=== PATIENT | female | born 1955 | race Caucasian/White ===

== ENCOUNTER 2020-03-23 00:31 | Outpatient (CLI) | payer MEDICARE, SELFPAY ==
[2020-03-23 16:41] LABS: SARS-CoV-2 RNA PCR Negative
== END 2020-03-23 00:32 | disposition home or self-care (01) ==
LOC: ANHCOVIDDT 00:31
PROVIDERS: PCP Family Medicine; Visit Provider Internal Medicine Gastroenterology
DX: Z01.818 Encounter for other preprocedural examination (principal); Z11.59 Encounter for screening for other viral diseases
CPT/HCPCS: 87635; C9803; U0003

== ENCOUNTER 2020-03-25 02:04 | Day surgery (SDC) | payer MEDICARE, SELFPAY ==
[2020-03-19 16:08] VITALS: BMI 33.7
[2020-03-25] MEDS: LACTATED RINGERS 1,000 ML 150 ML IV CONT (09:48)
[2020-03-25 09:51] VITALS: BP 168/65; PULSE 77; RESP 18; TEMP 36.2; O2SAT 97; BMI 34.2
--- NOTE | 2020-03-25 09:56 | P.HP_ITS ---
History of Present Illness History of Present Illness Consent: Risks, benefits, and alternatives have been discussed and questions answered. Patient agrees to proceed with procedure. Chief complaint: hx of polyps Narrative: Cynthia Mehta is a 65 year old female with a history of polyps. [facility] Family History Family History Father Family history of chronic obstructive pulmonary disease Hypertension Family history of heart disease in male family member before age 55 Mother Family history of coronary artery disease Social History Social History Smoking status: Never smoker Smoking end date: 10/23/10 Alcohol intake: never Meds Home Medications and Allergies Home Medications Medication Instructions Recorded Confirmed Type citalopram 40 mg tablet 40 mg PO DAILY #90 tablet 09/03/19 03/19/20 Rx clopidogrel 75 mg tablet 75 mg PO DAILY #90 tablet 09/11/19 03/25/20 Rx tiotropium bromide 18 mcg capsule 1 cap INHALATION DAILY #90 10/02/19 03/25/20 Rx with inhalation device inhalation isosorbide mononitrate 30 mg 30 mg PO DAILY #90 tablet 02/28/20 03/19/20 Rx tablet,extended release 24 hr nifedipine 60 mg tablet,extended 60 mg PO DAILY #90 tablet 03/11/20 03/25/20 Rx release 24 hr metoprolol succinate 25 mg 25 mg PO DAILY #30 tablet 03/12/20 03/19/20 Rx tablet,extended release 24 hr atorvastatin 20 mg PO DAILY 03/19/20 03/19/20 History cholecalciferol (vitamin D3) 25 mcg PO DAILY 03/19/20 03/19/20 History [Vitamin D3] fluticasone propion-salmeterol 1 ea INHALATION BID 03/19/20 03/19/20 History [Wixela Inhub] gabapentin 300 mg PO TID 03/19/20 03/25/20 History Allergies Allergy/AdvReac Type Severity Reaction Status Date / Time morphine Allergy Intermediate Nausea Verified 03/25/20 09:39 Sulfa (Sulfonamide Allergy Intermediate Nausea Verified 03/25/20 09:39 Antibiotics) Vital Signs Vital Signs - 24 hr 03/25/20 09:51 Temperature 36.2 C L Pulse Rate 77 Respiratory Rate 18 Blood Pressure 168/65 H Pulse Oximetry 97 Exam Resp: Auscultation: clear to auscultation bilaterally Cardio: Rate: regular rate Rhythm: regular rhythm GI: GI Palp: Yes Soft to palpation and No Tenderness to palpation present (GI) Assessment and Plan Assessment and plan (1) Personal history of colonic polyps: Code(s): Z86.010 - Personal history of colonic polyps Status: Acute Assessment and Plan: Colonoscopy with possible biopsy or polypectomy or cautery or injection of substances.
--- NOTE | 2020-03-25 10:09 | WPDANESEPPF ---
Anes - Initial Pre Proc Eval Procedure: Operation Date: 03/25/20 10:00 Proposed Procedures p Screening Colonoscopy - Kenton Wilder MD Date/Time: 03/25/20 10:09 Surgeon: Kenton Wilder MD Pre Op Diagnosis: hx of polyps Patient Data Age: 65 Gender: F Height: 5 ft 5 in Weight: 93.5 kg Last Vital Signs Temp 97.1 F L 03/25/20 09:51 Pulse 77 03/25/20 09:51 Resp 18 03/25/20 09:51 BP 168/65 H 03/25/20 09:51 Pulse Ox 97 03/25/20 09:51 Allergies Allergy/AdvReac Type Severity Reaction Status Date / Time morphine Allergy Intermediate Nausea Verified 03/25/20 09:39 Sulfa (Sulfonamide Allergy Intermediate Nausea Verified 03/25/20 09:39 Antibiotics) Home Medications Medication Instructions Recorded Confirmed Type citalopram 40 mg tablet 40 mg PO DAILY #90 tablet 09/03/19 03/19/20 Rx clopidogrel 75 mg tablet 75 mg PO DAILY #90 tablet 09/11/19 03/25/20 Rx tiotropium bromide 18 mcg capsule 1 cap INHALATION DAILY #90 10/02/19 03/25/20 Rx with inhalation device inhalation isosorbide mononitrate 30 mg 30 mg PO DAILY #90 tablet 02/28/20 03/19/20 Rx tablet,extended release 24 hr nifedipine 60 mg tablet,extended 60 mg PO DAILY #90 tablet 03/11/20 03/25/20 Rx release 24 hr metoprolol succinate 25 mg 25 mg PO DAILY #30 tablet 03/12/20 03/19/20 Rx tablet,extended release 24 hr atorvastatin 20 mg PO DAILY 03/19/20 03/19/20 History cholecalciferol (vitamin D3) 25 mcg PO DAILY 03/19/20 03/19/20 History [Vitamin D3] fluticasone propion-salmeterol 1 ea INHALATION BID 03/19/20 03/19/20 History [Wixela Inhub] gabapentin 300 mg PO TID 03/19/20 03/25/20 History Patient hx anesthesia problems: none Family hx anesthesia problems: none PMFSH Past Medical History Medical History (Updated 03/25/20 @ 10:09 by Jorge Orozco MD) CVA (cerebral vascular accident) no residual effects End stage renal disease Hyperlipidemia Hypertension TIA (transient ischemic attack) Family History Family History Father Family history of chronic obstructive pulmonary disease Hypertension Family history of heart disease in male family member before age 55 Mother Family history of coronary artery disease Social History Social History Smoking status: Never smoker Smoking end date: 10/23/10 Alcohol intake: never Anes - Eval Final PreProcedure Day of Procedure 03/25/20 10:09 Patient weight: obese Heart: regular rate and rhythm Lungs: clear to auscultation Airway: Mallampati scale class III Neurological: alert and oriented Last oral intake: >/= 8 hours ASA classification: III Emergent: no Anesthetic plan: proceed Anesthesia type and monitoring: general GIVS and standard monitoring Informed Consent: The patient's anesthetic plan and its attendant risks and benefits were discussed with the patient/family/POA. Questions were solicited and answers provided to the satisfaction of the patient/family/POA.
[2020-03-25 10:35] VITALS: BP 97/54; PULSE 66; RESP 18; O2SAT 89
--- NOTE | 2020-03-25 10:36 | SUR.OPER ---
Three Resolution Clips placed at ascending colon site. LOT [id number] and 2022-11-24, LOT [id number] and 2022-11-24, LOT [id number] and 2022-10-29
[2020-03-25 10:45] VITALS: BP 90/51; PULSE 68; RESP 22; O2SAT 95
[2020-03-25 10:55] VITALS: BP 101/54; PULSE 66; RESP 20; O2SAT 98
== END 2020-03-25 11:13 | disposition home or self-care (01) ==
PROVIDERS: PCP Family Medicine; Visit Provider Internal Medicine Gastroenterology
PROC: 0DJD8ZZ Inspection of Lower Intestinal Tract, Via Natural or Artificial Opening Endoscopic (ICD-10-PCS; CPT 45378; principal; 2020-03-25 10:00)
DX: Z12.11 Encounter for screening for malignant neoplasm of colon (principal); K64.8 Other hemorrhoids; D12.2 Benign neoplasm of ascending colon; E78.5 Hyperlipidemia, unspecified; I12.0 Hypertensive chronic kidney disease with stage 5 chronic kidney disease or end stage renal disease; N18.6 End stage renal disease; Z86.73 Personal history of transient ischemic attack (TIA), and cerebral infarction without residual deficits; Z79.02 Long term (current) use of antithrombotics/antiplatelets; E66.9 Obesity, unspecified; Z68.34 Body mass index [BMI] 34.0-34.9, adult
CPT/HCPCS: 45381; 45385; 88305; J2704; J7120

== ENCOUNTER 2020-07-22 02:40 | Outpatient (CLI) | payer MEDICARE, SELFPAY ==
[2020-07-22 18:24] LABS: SARS-CoV-2 RNA PCR Negative
== END 2020-07-22 02:41 | disposition home or self-care (01) ==
LOC: ANHCOVIDDT 02:40
PROVIDERS: PCP Family Medicine; Visit Provider Internal Medicine Gastroenterology
DX: Z01.812 Encounter for preprocedural laboratory examination (principal); Z20.828 Contact with and (suspected) exposure to other viral communicable diseases
CPT/HCPCS: 87635; C9803; U0003

== ENCOUNTER 2020-07-24 00:06 | Day surgery (SDC) | payer MEDICARE, SELFPAY ==
[2020-07-17 14:28] VITALS: BMI 33.4
[2020-07-24 06:50] VITALS: BP 165/78; PULSE 80; RESP 22; TEMP 36.2; O2SAT 95
[2020-07-24] MEDS: LACTATED RINGERS 1,000 ML 150 ML IV CONT (07:18)
--- NOTE | 2020-07-24 07:19 | PM.HPGS ---
History of Present Illness History of Present Illness Consent: Risks, benefits, and alternatives have been discussed and questions answered. Patient agrees to proceed with procedure. Chief complaint: residual polyp Narrative: Cynthia Mehta is a 65 year old female here for therapeutic colonoscopy. She had a polyp which was incompletely removed due to its size earlier this year. [facility] Past Medical History Medical History Atherosclerosis of abdominal aorta COPD (chronic obstructive pulmonary disease) CVA (cerebral vascular accident) no residual effects End stage renal disease Hyperlipidemia Hypertension Hypertensive chronic kidney disease with stage 1 through stage 4 chronic kidney disease, or unspecified chronic kidney disease MDD (major depressive disorder), recurrent episode, moderate OAB (overactive bladder) Osteoporosis Renal artery stenosis TIA (transient ischemic attack) Tobacco dependence due to cigarettes Surgical History Surgical History History of left nephrectomy S/P cholecystectomy S/P insertion of iliac artery stent S/P renal artery angioplasty S/P total hysterectomy Status post below-knee amputation of left lower extremity Social History Social History Smoking packs per day: 1 Smoking cigarettes per day: 20.0 Years smoked: 52 Smoking pack-years: 52.00 Smoking status: Current every day smoker Tobacco type: cigarettes Second hand tobacco smoke exposure: No Smoking end date: 10/23/10 Alcohol intake: never Substance use: never Substance use type: does not use Living arrangements: with family Additional living arrangements comments: Gender identity (if verbalized by the patient): Female Spiritual care concerns: No Meds Home Medications and Allergies Home Medications Medication Instructions Recorded Confirmed Type cholecalciferol (vitamin D3) 25 mcg PO DAILY 03/19/20 07/17/20 History [Vitamin D3] gabapentin 300 mg PO TID 03/19/20 07/17/20 History metoprolol succinate 25 mg 25 mg PO DAILY #90 tablet 04/08/20 07/17/20 Rx tablet,extended release 24 hr clopidogrel 75 mg tablet 75 mg PO DAILY #90 tablet 04/13/20 07/17/20 Rx atorvastatin 20 mg tablet 20 mg PO DAILY #90 tablet 04/30/20 07/17/20 Rx isosorbide mononitrate 30 mg 30 mg PO DAILY #90 tablet 05/28/20 07/17/20 Rx tablet,extended release 24 hr albuterol sulfate 2.5 mg INHALATION Q4-6H PRN 07/13/20 07/17/20 History albuterol sulfate 90 mcg/actuation 1 puff INHALATION Q4H PRN #8.5 gm 07/14/20 07/17/20 Rx aerosol inhaler citalopram 20 mg PO DAILY 07/17/20 07/17/20 History Allergies Allergy/AdvReac Type Severity Reaction Status Date / Time morphine Allergy Intermediate Nausea Verified 07/24/20 06:49 Sulfa (Sulfonamide Allergy Intermediate Nausea Verified 07/24/20 06:49 Antibiotics) Vital Signs Vital Signs - 24 hr 07/24/20 06:50 Temperature 36.2 C L Pulse Rate 80 Respiratory Rate 22 H Blood Pressure 165/78 H Pulse Oximetry 95 Exam Resp: Auscultation: clear to auscultation bilaterally Cardio: Rate: regular rate Rhythm: regular rhythm GI: GI Palp: Yes Soft to palpation and No Tenderness to palpation present (GI) Assessment and Plan Assessment and plan (1) History of adenomatous polyp of colon: Code(s): Z86.010 - Personal history of colonic polyps Status: Acute Assessment and Plan: Colonoscopy with possible biopsy or polypectomy or cautery or injection of substances.
--- NOTE | 2020-07-24 07:43 | WPDANESEPPF ---
Anes - Initial Pre Proc Eval Procedure: Operation Date: 07/24/20 08:00 Proposed Procedures p Colonoscopy - Kenton Wilder MD Date/Time: 07/24/20 07:43 Surgeon: Kenton Wilder MD Pre Op Diagnosis: residual polyp Patient Data Age: 65 Gender: F Height: 5 ft 6 in Weight: 88.1 kg Last Vital Signs Temp 97.1 F L 07/24/20 06:50 Pulse 80 07/24/20 06:50 Resp 22 H 07/24/20 06:50 BP 165/78 H 07/24/20 06:50 Pulse Ox 95 07/24/20 06:50 Allergies Allergy/AdvReac Type Severity Reaction Status Date / Time morphine Allergy Intermediate Nausea Verified 07/24/20 06:49 Sulfa (Sulfonamide Allergy Intermediate Nausea Verified 07/24/20 06:49 Antibiotics) Home Medications Medication Instructions Recorded Confirmed Type cholecalciferol (vitamin D3) 25 mcg PO DAILY 03/19/20 07/17/20 History [Vitamin D3] gabapentin 300 mg PO TID 03/19/20 07/17/20 History metoprolol succinate 25 mg 25 mg PO DAILY #90 tablet 04/08/20 07/17/20 Rx tablet,extended release 24 hr clopidogrel 75 mg tablet 75 mg PO DAILY #90 tablet 04/13/20 07/17/20 Rx atorvastatin 20 mg tablet 20 mg PO DAILY #90 tablet 04/30/20 07/17/20 Rx isosorbide mononitrate 30 mg 30 mg PO DAILY #90 tablet 05/28/20 07/17/20 Rx tablet,extended release 24 hr albuterol sulfate 2.5 mg INHALATION Q4-6H PRN 07/13/20 07/17/20 History albuterol sulfate 90 mcg/actuation 1 puff INHALATION Q4H PRN #8.5 gm 07/14/20 07/17/20 Rx aerosol inhaler citalopram 20 mg PO DAILY 07/17/20 07/17/20 History Patient hx anesthesia problems: none Family hx anesthesia problems: none PMFSH Past Medical History Medical History Atherosclerosis of abdominal aorta COPD (chronic obstructive pulmonary disease) CVA (cerebral vascular accident) no residual effects End stage renal disease Hyperlipidemia Hypertension Hypertensive chronic kidney disease with stage 1 through stage 4 chronic kidney disease, or unspecified chronic kidney disease MDD (major depressive disorder), recurrent episode, moderate OAB (overactive bladder) Osteoporosis Renal artery stenosis TIA (transient ischemic attack) Tobacco dependence due to cigarettes Surgical History Surgical History History of left nephrectomy S/P cholecystectomy S/P insertion of iliac artery stent S/P renal artery angioplasty S/P total hysterectomy Status post below-knee amputation of left lower extremity Social History Social History Smoking packs per day: 1 Smoking cigarettes per day: 20.0 Years smoked: 52 Smoking pack-years: 52.00 Smoking status: Current every day smoker Tobacco type: cigarettes Second hand tobacco smoke exposure: No Smoking end date: 10/23/10 Alcohol intake: never Substance use: never Substance use type: does not use Living arrangements: with family Additional living arrangements comments: Gender identity (if verbalized by the patient): Female Spiritual care concerns: No Anes - Eval Final PreProcedure Day of Procedure 07/24/20 07:43 Patient weight: obese Heart: regular rate and rhythm Lungs: clear to auscultation Airway: Mallampati scale class III Neurological: alert and oriented Last oral intake: >/= 8 hours ASA classification: III Emergent: no Anesthetic plan: proceed Anesthesia type and monitoring: general GIVS and standard monitoring Informed Consent: The patient's anesthetic plan and its attendant risks and benefits were discussed with the patient/family/POA. Questions were solicited and answers provided to the satisfaction of the patient/family/POA.
[2020-07-24 08:30] VITALS: BP 102/48; PULSE 69; RESP 17; O2SAT 92
[2020-07-24 08:40] VITALS: BP 98/73; PULSE 64; RESP 20; O2SAT 98
[2020-07-24 08:50] VITALS: BP 122/71; PULSE 71; RESP 20; O2SAT 96
== END 2020-07-24 09:10 | disposition home or self-care (01) ==
PROVIDERS: PCP Family Medicine; Visit Provider Internal Medicine Gastroenterology
PROC: 0DJD8ZZ Inspection of Lower Intestinal Tract, Via Natural or Artificial Opening Endoscopic (ICD-10-PCS; CPT 45378; principal; 2020-07-24 08:00)
DX: Z09 Encounter for follow-up examination after completed treatment for conditions other than malignant neoplasm (principal); D12.2 Benign neoplasm of ascending colon; K64.8 Other hemorrhoids; I12.0 Hypertensive chronic kidney disease with stage 5 chronic kidney disease or end stage renal disease; N18.6 End stage renal disease; E78.5 Hyperlipidemia, unspecified; J44.9 Chronic obstructive pulmonary disease, unspecified; F33.1 Major depressive disorder, recurrent, moderate; M81.0 Age-related osteoporosis without current pathological fracture; F17.210 Nicotine dependence, cigarettes, uncomplicated; Z90.5 Acquired absence of kidney; Z89.512 Acquired absence of left leg below knee; E66.9 Obesity, unspecified; Z68.31 Body mass index [BMI] 31.0-31.9, adult; Z79.02 Long term (current) use of antithrombotics/antiplatelets
CPT/HCPCS: 45381; 45388; 88305; J2001; J2704; J7120

== ENCOUNTER 2020-12-31 11:10 | Outpatient (CLI) | payer MEDICARE, SELFPAY | END 2020-12-31 11:11 | disposition home or self-care (01) | LOC: ANHCOVIDVC 11:10 | PROVIDERS: PCP Family Medicine | DX: Z23 Encounter for immunization (principal) | CPT/HCPCS: 0001A; 91300 ==

== ENCOUNTER 2021-01-21 11:14 | Outpatient (CLI) | payer MEDICARE, SELFPAY | END 2021-01-21 11:15 | disposition home or self-care (01) | LOC: ANHCOVIDVC 11:14 | PROVIDERS: PCP Family Medicine | DX: Z23 Encounter for immunization (principal) | CPT/HCPCS: 0002A; 91300 ==